=== PATIENT | male | born 1940 | race Two or more races ===

== ENCOUNTER → 2018-12-26 | Outpatient (CLI) | payer MEDICARE, MEDICAID | END | disposition home or self-care (01) | LOC: MSC 16:30 | PROVIDERS: ATTEND Anesthesiology | DX: M51.26 Other intervertebral disc displacement, lumbar region (principal); M47.27 Other spondylosis with radiculopathy, lumbosacral region; M48.07 Spinal stenosis, lumbosacral region; M62.830 Muscle spasm of back; M40.299 Other kyphosis, site unspecified; M25.9 Joint disorder, unspecified; F17.290 Nicotine dependence, other tobacco product, uncomplicated ==